=== PATIENT | female | born 1960 | race Caucasian/White ===

== ENCOUNTER 2017-02-09 16:40 | Emergency (ER) | payer MEDICARE, BC ==
[2017-02-09 17:00] VITALS: TEMP 98.1
[2017-02-09] MEDS ORDERED: ONDANSETRON HCL 4 MG/2 ML SOL IV ONE (17:06)
[2017-02-09] MEDS ORDERED: SODIUM CHLORIDE 0.9% FLUSH 10 ML SOL IV PRN (17:06)
[2017-02-09] MEDS ORDERED: ONDANSETRON HCL 4 MG/2 ML SOL ONE (17:07)
[2017-02-09 17:08] LABS: BASOPHILS % (AUTO) 2 % (0-3); EOSINOPHILS % (AUTO) 2 % (0-9); HEMATOCRIT 44 % (35-47); MEAN CORPUSCULAR HGB CONC 32.2 gm/dl (32.0-36.0); MEAN CORPUSCULAR VOLUME 98 fL (81-99); MONOCYTES % (AUTO) 10.4 % (0-12); NEUTROPHILS % (AUTO) 56.7 % (37-80)
[2017-02-09 17:23] LABS: ALBUMIN 2.6 gm/dl (3.4-5.0); ALT 21 IU/L (14-63); CALCIUM 8.5 mg/dl (8.5-10.1); GLOM FILT RATE 62 mL/min (>60); POTASSIUM 3.7 mMol/L (3.5-5.1); SODIUM 138 mMol/L (136-145)
[2017-02-09 18:47] VITALS: BP 118/104; PULSE 86; RESP 18; O2SAT 98
== END 2017-02-09 19:00 | disposition short-term general hospital (02) | DRG 292 ==
LOC: ED 16:40
DX: I50.9 Heart failure, unspecified (principal); I48.92 Unspecified atrial flutter; R56.9 Unspecified convulsions; R79.89 Other specified abnormal findings of blood chemistry; R40.2362 Coma scale, best motor response, obeys commands, at arrival to emergency department; R40.2132 Coma scale, eyes open, to sound, at arrival to emergency department; R40.2242 Coma scale, best verbal response, confused conversation, at arrival to emergency department
CPT/HCPCS: 36415; 70450; 71010; 80053; 80307; 83880; 84484; 85025; 85378; 93005; 96374; 99285; 99291; J2405